=== PATIENT | female | born 1935 | race Caucasian/White ===

== ENCOUNTER 2017-05-06 14:16 | Outpatient (CLI) | payer MEDICARE ==
--- NOTE | 2017-05-06 16:31 | MMO ---
BILATERAL MAMMOGRAMS: DATE: 05/06/17 HISTORY: Screening mammography. COMPARISON: 12/08/12 and 03/22/16. FINDINGS: Heterogeneously dense fibroglandular tissue and benign-appearing calcifications are again demonstrat ed. No dominant mass or suspicious calcifications. The study was evaluated with the assistance of computer-aided detection. IMPRESSION: BIRADS 1: Negative Suggest routine follow-up. POS: KENNETH
== END 2017-05-06 14:17 | disposition home or self-care (01) ==
LOC: SCSMAMMO 14:16
PROVIDERS: ATTEND Family Medicine
DX: Z12.31 Encounter for screening mammogram for malignant neoplasm of breast (principal)
CPT/HCPCS: 77067; G0202

== ENCOUNTER 2018-06-09 10:43 | Outpatient (CLI) | payer MEDICARE | END 2018-06-09 10:44 | disposition home or self-care (01) | LOC: BICMAMMO 10:43 | PROVIDERS: ATTEND Family Medicine | DX: Z12.31 Encounter for screening mammogram for malignant neoplasm of breast (principal) | CPT/HCPCS: 77063; 77067 ==

== ENCOUNTER 2019-03-11 05:52 | Day surgery (SDC) | payer MEDICARE ==
[2019-03-10 14:17] VITALS: BMI 28.2
[2019-03-11] MEDS ORDERED: EPINEPHrine 0.3 MG in Ophthalmic Irrigation Solution 500 ML IVP SCH (06:00)
[2019-03-11] MEDS ORDERED: Phenylephrine 2.5% Ophth Soln 5 ML BOT ONE (06:05)
[2019-03-11] MEDS ORDERED: Cyclopentolate 1% Opth Drop 2 ML BOT ONE (06:05)
--- NOTE | 2019-03-11 11:29 | OP ---
DATE OF PROCEDURE: 03/11/2019 PRINCIPAL PREOPERATIVE DIAGNOSIS: Vitreomacular traction syndrome, left eye. POSTOPERATIVE DIAGNOSIS: Vitreomacular traction syndrome, left eye. PROCEDURES PERFORMED: 1. 25-gauge pars plana vitrectomy, left eye. 2. Membrane peel, left eye. ESTIMATED BLOOD LOSS: None. SPECIMENS REMOVED: None. COMPLICATIONS: None. ANESTHESIA: LMA. DESCRIPTION OF PROCEDURE: The patient was identified in the preoperative holding area, where the correct eye being the left eye was marked for surgery. The patient was taken to the operating room, where general anesthesia was induced. The left eye was prepped and draped in the usual sterile ophthalmic fashion for surgery. A wire lid speculum was placed. A standard 25-gauge pars plana vitrectomy platform was fashioned with trocars placed approximately 3.5 mm from the limbus. The infusion was noted to be within the vitreous cavity prior to being turned out to infusion pressure of 30 mmHg. A light pipe Micro vitrector was introduced in the eye under visualization of the viewing system. A careful core vitrectomy was performed followed by injection of Kenalog. A gentle posterior vitreous detachment was created followed by completion of peripheral shave vitrectomy. Great care was taken to minimize traction placed on the fovea. Following completion of peripheral shave vitrectomy, a 360-degree exam of periphery was performed, which revealed no defects. The cannulas were sequentially removed with suturing of the supranasal and infratemporal sclerotomies with 7-0 Vicryl suture. Following suturing, all sclerotomies were noted to be watertight. Subconjunctival dexamethasone and Ancef were injected. The wire lid speculum was removed followed by application of Tobradex and application of light patch and shield. The patient tolerated the procedure well and was taken to the outpatient recovery area in good condition. Job ID: [id number]
== END 2019-03-11 09:20 | disposition home or self-care (01) ==
LOC: SDC 05:52
PROVIDERS: ATTEND Ophthalmology Retina Specialist
PROC: 08T53ZZ Resection of Left Vitreous, Percutaneous Approach (ICD-10-PCS; principal; 2019-03-11)
PROC: 08NF3ZZ Release Left Retina, Percutaneous Approach (ICD-10-PCS; 2019-03-11)
DX: H43.822 Vitreomacular adhesion, left eye (principal); Z79.1 Long term (current) use of non-steroidal anti-inflammatories (NSAID); Z79.82 Long term (current) use of aspirin; Z79.899 Other long term (current) drug therapy; Z88.0 Allergy status to penicillin; Z91.041 Radiographic dye allergy status; Z98.41 Cataract extraction status, right eye
CPT/HCPCS: J0171

== ENCOUNTER 2019-07-14 14:57 | Outpatient (CLI) | payer MEDICARE ==
--- NOTE | 2019-07-14 12:02 | MMO ---
Bilateral MAMMO Bilat Screen DDI+PURA. CLINICAL HISTORY: Patient is 84 years old and is seen for screening. The patient has no family history of breast cancer. The patient has no personal history of cancer. VIEWS: The views performed were: bilateral craniocaudal with tomosynthesis and bilateral mediolateral oblique with tomosynthesis. FILMS COMPARED: The present examination has been compared to prior imaging studies performed at [facility] on 03/06/2015, 03/22/2016, 05/07/2017 and 06/09/2018. This study has been interpreted with the assistance of computer-aided detection. MAMMOGRAM FINDINGS: There are scattered fibroglandular densities. There are stable benign appearing calcifications seen in the right breast. There are no suspicious masses, calcifications or areas of architectural distortion. There are no suspicious masses, suspicious calcifications, or new areas of architectural distortion. IMPRESSION: THERE IS NO MAMMOGRAPHIC EVIDENCE OF MALIGNANCY. A ROUTINE FOLLOW-UP MAMMOGRAM IN 1 YEAR IS RECOMMENDED. THE RESULTS OF THIS EXAM WERE SENT TO THE PATIENT. ACR BI-RADS Category 2 - Benign finding MAMMOGRAPHY NOTE: 1. A negative mammogram report should not delay a biopsy if a dominant of clinically suspicious mass is present. 2. Approximately 10% to 15% of breast cancers are not detected by mammography. 3. Adenosis and dense breasts may obscure an underlying neoplasm. Reported by: SADIE REED MD Electonically Signed: [id number]
== END 2019-07-14 14:58 | disposition home or self-care (01) ==
LOC: BICMAMMO 14:57
PROVIDERS: ATTEND Family Medicine
DX: Z12.31 Encounter for screening mammogram for malignant neoplasm of breast (principal)
CPT/HCPCS: 77063; 77067

== ENCOUNTER 2020-07-13 15:27 | Inpatient (IN) | payer MEDICARE ==
[2020-07-13 17:03] LABS: Bacteria/HPF None Seen HPF (None Seen); Bilirubin Negative (Negative); Blood, Urine Trace (Negative); Clarity Clear (Clear); Glucose, Urine (Dipstick) Normal (Negative); Ketone, Urine Negative (Negative); Leukocyte Negative Leu/uL (Negative); Nitrite Negative (Negative); Protein, Urine (Dipstick) Negative (Neg-Trace); RBC/HPF 0-3 HPF (0-3); Specific Gravity, Urine 1.005 (1.002-1.036); Squamous Epithelial None Seen HPF (0-3); Urobilinogen Normal mg/dL (Less than 2); WBC/HPF 0-3 HPF (0-3)
[2020-07-13 17:19] LABS: #Eosinphils 0.1 thou/uL (0.0-0.7); #Lymphocytes 2.3 thou/uL (1.20-3.40); #Monocytes 0.6 thou/uL (0.11-0.59); #Neutrophils 4.3 thou/uL (1.40-6.50); %Basophils 0.6 % (0.0-1.0); %Lymphocytes 31.1 % (21.0-51.0); %Monocytes 7.6 % (0.0-10.0); %Neutrophils 58.7 % (42.0-75.0); Hemoglobin 11.4 g/dL (12.0-16.0); Mean Corpuscular HGB CONC 32.7 g/dL (32.0-36.0); Mean Corpuscular Hemoglobin 32.5 pg (27.0-31.0); Mean Corpuscular Volume 99.7 fL (78.0-98.0); Mean Platelet Volume 7.8 fL (7.4-10.4); Platelet Count 223 thou/uL (130-400); RBC Distribution Width 11.6 % (11.5-14.5); Red Blood Cell (RBC) Count 3.51 mill/uL (4.20-5.40); White Blood Cell (WBC) Count 7.3 thou/uL (4.8-10.8)
[2020-07-13 17:27] LABS: ALT (SGPT) 13 U/L (8-55); AST (SGOT) 21 U/L (5-34); Albumin 4.1 g/dL (3.4-4.8); Alkaline Phosphatase 57 U/L (40-110); Anion Gap 16 mmol/L (10-20); BUN (Urea Nitrogen) 12 mg/dL (9.8-20.1); Bilirubin, Total 0.3 mg/dL (0.2-1.2); Calc. Creatinine Clearance 0 mL/min (70-130); Calcium 9.3 mg/dL (7.8-10.44); Carbon Dioxide 23 mmol/L (23-31); Chloride 107 mmol/L (98-107); Globulin 3.1 g/dL (2.4-3.5); Glucose 99 mg/dL (83-110); Potassium 4.3 mmol/L (3.5-5.1); Protein, Total 7.2 g/dL (6.0-8.3); Sodium 142 mmol/L (136-145)
--- NOTE | 2020-07-13 18:28 | RAD ---
TWO VIEWS OF THE RIGHT HUMERUS: 07/13/20 COMPARISON: None. HISTORY: Left shoulder pain after fall. FINDINGS: two views of the right humerus shows no evidence of acute fracture or dislocation. No significant deg enerative changes are seen in the shoulder or elbow. The visualized right thorax is unremarkable. Mi ld soft tissue swelling of the upper arm is seen. IMPRESSION: No evidence of acute osseous abnormality. POS: EAA
--- NOTE | 2020-07-13 19:06 | PDOC.HHP ---
Hospitalist HPI - History of Present Illness Fall History of Present Illness: PCP: Dr. Arceo The H&P was taken from the patient and her daughter at bedside. The patient is an 85-year-old female with a past medical history significant for vertigo, hyperlipidemia and urinary incontinence that presents to the emergency department as a transfer from [facility] via EMS to rule out posterior stroke. The patient reports that she fell because "I lost my balance" this morning while ambulating in her home. She reports that she tried to grab the handle of the oven in order to steady herself, but could not, so she fell to the floor. She reports that she usually ambulates with a cane, however, did not do so at that time. She says that she fell backwards onto her bottom and back, and says that she may have hit her head. The patient called her neighbor who in turn called 911. She denies any headache or neck pain. She does endorse left shoulder pain. She denies LOC, dizziness/vertigo prior to the fall. Denies any recent illness or fever. No recent changes to her medications. She denies any chest pain, heart palpitations or lightheadedness prior to the fall. She denies any abdominal pain, vomiting, or melena/hematochezia. The patient was taken to [facility]. [facility], the patient CT brain negative for any acute process. Did have a vague low-density area in the left parieto-occipital lobe could be volume averaging versus CVA. CT of the neck showed no acute fracture, did show degenerative changes. The patient's blood work was unremarkable. She was given an aspirin and transferred to our hospital for further evaluation to rule out posterior stroke . ED Course: VITAL SIGNS Judith Jul 13, 2020 15:31 SAPPHIRE [place] BP: 170/97, Pulse: 93, Resp: 22, Temp: 99.3 (Oral), Pain: 3, O2 sat: 97 on (Room Air), Time: 07/13/2020 15:31. VITAL SIGNS Judith Jul 13, 2020 16:50 SAPPHIRE [place] BP: 157/98, Pulse: 86, Resp: 20, Pain: 0, O2 sat: 99 on (Room Air), Time: 07/13/2020 16:50. VITAL SIGNS Judith Jul 13, 2020 17:50 SAPPHIRE [place] BP: 157/98, Pulse: 93, Resp: 20, Pain: 0, O2 sat: 97 on (Room Air), Time: 07/13 17:50. VITAL SIGNS Judith Jul 13, 2020 18:12 SAPPHIRE [place] BP: 157/98, Pulse: 93, Resp: 19, Pain: 0, O2 sat: 97 on (Room Air), Time: 07/13/2020 18:12. Allergies: Iodinated contrast Hospitalist ROS - Review of Systems All other systems reviewed; all pertinent +/- noted in HPI/Subj - Medication Medications: 1. Simvastatin 40 mg p.o. daily 2. Meclizine 25 mg p.o. daily. 3. Aspirin 81 mg p.o. nightly. 4. Nmpyiaqe44 mg p.o. daily 5. Omeprazole 20 mg p.o. daily 6. Loratadine 10 mg p.o. daily 7. Meloxicam 7.5 mg p.o. nightly. 8. Seroquel 25 mg p.o. 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: Vertigo (Takes meclizine daily), Other (Bilateral hand tremor, takes Seroquel daily) Gastrointestinal: reports: GERD Musculoskeletal: reports: Osteoarthritis ENT: reports: Other (Seasonal allergies) Renal/: reports: Other (Urinary incontinence) - Past Surgical History Past Surgical History: reports: no pertinent history - Family History Family History: denies: cerebrovascular accident - Social History Smoking Status: Never smoker Alcohol: reports: None Drugs: reports: none Living Situation: Alone Occupation: Retired Activity level: uses cane/walker - Exam General Appearance: NAD, awake alert. negative: ill appearing Eye: PERRL, anicteric sclera ENT: normocephalic atraumatic Neck: supple, symmetric Heart: RRR, no murmur, no gallops, no rubs, normal peripheral pulses Respiratory: CTAB, no wheezes, no rales, no ronchi, normal chest expansion, no tachypnea Gastrointestinal: soft, non-tender, non-distended, normal bowel sounds, no guarding, no rigidity Gastrointestinal - other findings: No rebound Extremities: no cyanosis, no edema Skin: no rashes Neurological: cranial nerve grossly intact, no focal deficits Musculoskeletal: normal tone, normal strength Psychiatric: normal affect, A&O x 3 Psychiatric - other findings: [facility] Hospitalist Results - Labs Result Diagrams: 07/13/20 16:57 07/13/20 16:57 Lab results: WBC 7.3 thou/uL (4.8-10.8) 07/13/20 16:57 Hgb 11.4 g/dL (12.0-16.0) L 07/13/20 16:57 Hct 34.9 % (36.0-47.0) L 07/13/20 16:57 MCV 99.7 fL (78.0-98.0) H 07/13/20 16:57 Plt Count 223 thou/uL (130-400) 07/13/20 16:57 Neutrophils % 58.7 % (42.0-75.0) 07/13/20 16:57 Sodium 142 mmol/L (136-145) 07/13/20 16:57 Potassium 4.3 mmol/L (3.5-5.1) 07/13/20 16:57 Chloride 107 mmol/L (98-107) 07/13/20 16:57 Carbon Dioxide 23 mmol/L (23-31) 07/13/20 16:57 BUN 12 mg/dL (9.8-20.1) 07/13/20 16:57 Creatinine 1.16 mg/dL (0.6-1.1) H 07/13/20 16:57 Glucose 99 mg/dL (83-110) 07/13/20 16:57 Calcium 9.3 mg/dL (7.8-10.44) 07/13/20 16:57 Total Bilirubin 0.3 mg/dL (0.2-1.2) 07/13/20 16:57 AST 21 U/L (5-34) 07/13/20 16:57 ALT 13 U/L (8-55) 07/13/20 16:57 Alkaline Phosphatase 57 U/L (40-110) 07/13/20 16:57 Troponin I 0.020 ng/mL (< 0.028) 07/13/20 16:57 Serum Total Protein 7.2 g/dL (6.0-8.3) 07/13/20 16:57 Albumin 4.1 g/dL (3.4-4.8) 07/13/20 16:57 Urine Ketones Negative mg/dL (Negative) 07/13/20 16:39 Urine Blood Trace (Negative) A 07/13/20 16:39 Urine Nitrite Negative (Negative) 07/13/20 16:39 Ur Leukocyte Esterase Negative Demarcus/uL (Negative) 07/13/20 16:39 Urine RBC 0-3 HPF (0-3) 07/13/20 16:39 Urine WBC 0-3 HPF (0-3) 07/13/20 16:39 Ur Squamous Epith Cells None Seen HPF (0-3) 07/13/20 16:39 Urine Bacteria None Seen HPF (None Seen) 07/13/20 16:39 - Radiology Interpretation CT scan - head Status: report reviewed by me Additional Comment: Vague low-density area in the left parieto-occipital region, volume averaging versus stroke. No acute intracranial process. Other Status: report reviewed by me Additional Comment: CT neck Degenerative changes, no acute fracture. XR left humerus: No acute fracture dislocation. Chest x-ray Status: report reviewed by me Additional Comment: No acute process. Hospitalist H&P A/P - Problem (1) TIA (transient ischemic attack) Code(s): G45.9 - TRANSIENT CEREBRAL ISCHEMIC ATTACK, UNSPECIFIED Status: Acute (2) Fall Code(s): W19.XXXA - UNSPECIFIED FALL, INITIAL ENCOUNTER Status: Acute (3) Tremor of both hands Code(s): R25.1 - TREMOR, UNSPECIFIED Status: Chronic (4) Urinary retention Code(s): R33.9 - RETENTION OF URINE, UNSPECIFIED Status: Acute (5) Urinary incontinence Code(s): R32 - UNSPECIFIED URINARY INCONTINENCE Status: Chronic (6) GERD (gastroesophageal reflux disease) Code(s): K21.9 - GASTRO-ESOPHAGEAL REFLUX DISEASE WITHOUT ESOPHAGITIS Status: Chronic (7) HLD (hyperlipidemia) Code(s): E78.5 - HYPERLIPIDEMIA, UNSPECIFIED Status: Chronic (8) Osteoarthritis Code(s): M19.90 - UNSPECIFIED OSTEOARTHRITIS, UNSPECIFIED SITE Status: Chronic - Plan Plan: 85/F with PMH vertigo, HLD presents for fall, R/O posterior CVA. Admit to stroke unit, observation status. Expected length of stay less than 2 midnights. Presented hypertensive, tachycardic, NL RR, SPO2, afebrile. CT vague low-density area in left parieto-occipital region. CT neck degenerative changes. CXR no acute process. Blood work unremarkable. UA unremarkable. #TIA Order MRI, CD US, echocardiogram. Consult neurology and stroke team. Continue aspirin, start statin. Check TSH, FLP, mag, folate/B12. Orthostatic VS Permissive hypertension. Neurochecks. #Fall Likely mechanical fall. Per ER MD, concern for posterior stroke. Work-up as stated in problem #1. #Tremor of both hands chronic. takes seroquel at home. Restart home dose seroquel. #Urinary retention Presented with distended abdomen. Bladder scan approximately 2L UOP s/p urinary catheter. Takes Vesicare at home. Reports compliance of medications. We will hold Vesicare for now. UA clear. Urine culture pending. #Urinary incontinence Takes Vesicare at home. We will hold home dose Vesicare for now. #GERD Takes omeprazole at home. Restart home medication. #HLD Takes simvastatin at home. We will restart home medication. Check FLP. #Osteoarthritis Takes meloxicam at home. We will restart home dose of meloxicam. SCDs for DVT prophylaxis. Omeprazole GI prophylaxis. Full code Discussed case with Dr. Lunsford.
[2020-07-13] MEDS ORDERED: Labetalol HCl 100 MG/20 ML VIAL SLOW IVP PRN (20:24)
[2020-07-13] MEDS ORDERED: hydrALAZINE 20 MG/ML VIAL SLOW IVP PRN (20:24)
[2020-07-13] MEDS ORDERED: Calcium Carbonate 500 MG ChewTAB PO PRN (20:27)
[2020-07-13] MEDS ORDERED: Ondansetron PF 4 MG/2 ML Vial IVP PRN (20:27)
[2020-07-13] MEDS ORDERED: Senokot S 8.6-50 MG TAB PO PRN (20:27)
[2020-07-13] MEDS ORDERED: Ondansetron ODT 4 MG TAB PO PRN (20:27)
[2020-07-13] MEDS ORDERED: Acetaminophen 325 MG TAB PO PRN (20:27)
[2020-07-13 21:30] LABS: Troponin I 0.017 ng/mL (< 0.028)
[2020-07-13 22:34] VITALS: BMI 28.6
[2020-07-13] MEDS: Atorvastatin Calcium 40 MG TAB PO SCH (23:24)
[2020-07-13] MEDS: Meloxicam 7.5 MG TAB PO SCH (23:25)
[2020-07-13 23:45] LABS: Troponin I Less than 0.010 ng/mL (< 0.028)
[2020-07-14 05:36] LABS: #Basophils 0.1 thou/uL (0.0-0.2); #Eosinphils 0.3 thou/uL (0.0-0.7); #Lymphocytes 2.5 thou/uL (1.20-3.40); #Monocytes 0.6 thou/uL (0.11-0.59); %Basophils 1.1 % (0.0-1.0); %Eosinophils 4.6 % (0.0-10.0); %Lymphocytes 38.7 % (21.0-51.0); %Monocytes 9.3 % (0.0-10.0); %Neutrophils 46.3 % (42.0-75.0); Hemoglobin 11.1 g/dL (12.0-16.0); Mean Corpuscular HGB CONC 32.9 g/dL (32.0-36.0); Mean Corpuscular Hemoglobin 32.1 pg (27.0-31.0); Mean Corpuscular Volume 97.7 fL (78.0-98.0); Mean Platelet Volume 7.8 fL (7.4-10.4); Platelet Count 221 thou/uL (130-400); RBC Distribution Width 11.6 % (11.5-14.5); Red Blood Cell (RBC) Count 3.46 mill/uL (4.20-5.40); White Blood Cell (WBC) Count 6.5 thou/uL (4.8-10.8)
[2020-07-14 05:59] LABS: Anion Gap 12 mmol/L (10-20); BUN (Urea Nitrogen) 11 mg/dL (9.8-20.1); Calc. Creatinine Clearance 46 mL/min (70-130); Calcium 9.1 mg/dL (7.8-10.44); Carbon Dioxide 28 mmol/L (23-31); Cardiac Risk 2.6 (Less than 4.5); Chloride 104 mmol/L (98-107); Cholesterol 144 mg/dl (< 200 Desired); Glucose 80 mg/dL (83-110); HDL Cholesterol 55 mg/dL (>60 Neg Risk); LDL Cholesterol, Calculated 71 mg/dL; Magnesium 1.6 mg/dL (1.6-2.6); Potassium 3.8 mmol/L (3.5-5.1); Sodium 140 mmol/L (136-145); Triglycerides 92 mg/dL (Less than 150)
[2020-07-14 06:22] LABS: SARS-CoV-2 MS2 Positive; SARS-CoV-2 N Gene Negative; SARS-CoV-2 S Gene Negative; SARS-CoV-2 by NAA Not Detected (NotDetected); SARS-CoV-2 orf1ab Negative
[2020-07-14 06:23] LABS: Thyroid Stimulating Hormone 3.1907 uIU/mL (0.35-4.94)
--- NOTE | 2020-07-14 06:47 | ULT ---
CAROTID ULTRASOUND: DATE: 07/13/2020 COMPARISON: None. HISTORY: Loss of balance and fell and hit head. TECHNIQUE: Multiplanar Mcclendon scale and color Doppler images were obtained in a carotid ultrasound. Spectral ashley sis of the Doppler waveforms were performed. FINDINGS: A minimal amount of plaque is seen surrounding both carotid bifurcations. The Doppler waveforms are n ormal bilaterally. Peak systolic velocity in the right ICA is 95 cm/second. Peak systolic velocity in the right CCA is 8 5 cm/second. The right ICA/CCA ratio is 1.1. Peak systolic velocity in the left ICA is 99 cm/second. Peak systolic velocity in the left CCA is 101 cm/second. The left ICA/CCA ratio is 1.0. Both vertebral arteries demonstrate antegrade flow without focal stenosis. IMPRESSION: No evidence of hemodynamically significant stenosis. POS: EAA
[2020-07-14] MEDS ORDERED: FLU VACC QS2020-21(65YR UP)/PF 240 MCG/0.7 ML SYRINGE IM ONE (09:00)
[2020-07-14] MEDS: Aspirin 325 mg Enteric Coated Tablet PO SCH (10:13)
[2020-07-14] MEDS: Loratadine 10 MG TAB PO SCH (10:17)
[2020-07-14] MEDS: Meclizine HCl 12.5 MG TAB PO SCH (10:17)
--- NOTE | 2020-07-14 10:23 | MRI ---
MRI BRAIN WITHOUT CONTRAST: Date: 07/14/2020 INDICATION: Weakness. Question stroke. Correlation made to CT scan yesterday which questioned possible infarct in the left temporoparietal r egion. FINDINGS: Moderate cortical atrophy. Moderate chronic ischemic white matter change. Ventricles have normal size and position. There is no evidence of mass or edema. There is no evidence of restricted diffusion, a nd therefore no evidence of acute or subacute infarct. Findings on yesterday's CT scan would be the r esult of volume averaging. The intracranial internal carotid arteries and proximal cerebral arteries demonstrate flow-voids. Bas ilar artery is patent. IMPRESSION: 1. Mild cortical atrophy and moderate chronic ischemic white matter change. 2. No acute process. POS: AGW
--- NOTE | 2020-07-14 13:48 | CON ---
NEUROLOGY CONSULTATION DATE OF CONSULTATION: 07/14/2020 REASON FOR CONSULTATION: Stroke. HISTORY OF PRESENT ILLNESS: Ms. Cutler is an 85-year-old female with medical history significant for vertigo, hyperlipidemia, bilateral hand tremor, osteoarthritis, seasonal allergy, and urinary incontinence, presented to the emergency room after a fall. She was referred as a transfer from [facility] via EMS to rule out posterior circulation stroke. Per the patient, she fell because she lost her balance while ambulating at home. Yesterday, she tried to grab the handle, wanting her to steady herself, but could not, and fell to the floor. Per patient, she usually ambulates with a cane, but she was not able to do that at that time. The patient denies any focal weakness, focal paresthesias, nausea, vomiting, headache, chest pain, abdominal pain, dizziness, vertigo or double vision, loss of vision or loss of consciousness, recent illness, chest pain, or recent exposure to COVID. In the [place] ED, head CT was done, which was negative for acute intracranial pathology, but did show a vague low-density area in the left parieto-occipital lobe, so there is a concern about stroke, so she was transferred to the [facility] for [facility] evaluation. CT of the neck did not reveal any acute fracture, but did show degenerative changes. She was given aspirin and transferred for further evaluation for stroke. REVIEW OF SYSTEMS: All systems reviewed and were negative except the pertinent positives and negatives mentioned in the HPI. ALLERGIES: IODINATED CONTRAST. HOME MEDICATIONS: 1. Simvastatin 40 mg p.o. daily. 2. Meclizine 25 mg p.o. daily. 3. Aspirin 81 mg p.o. daily. 4. VESIcare 10 mg p.o. daily. 5. Omeprazole 20 mg p.o. daily. 6. Loratadine 10 mg p.o. daily. 7. Meloxicam 7.5 mg p.o. nightly. 8. Seroquel 25 mg p.o. daily. PAST MEDICAL HISTORY: Hyperlipidemia, vertigo, bilateral hand tremor, GERD, osteoarthritis, seasonal allergies, and urinary incontinence. PAST SURGICAL HISTORY: No significant past surgical history. FAMILY HISTORY: No family history of cerebrovascular accident. SOCIAL HISTORY: The patient is retired and lives alone. She uses a cane or a walker. Denies smoking, alcohol, or illegal drug use. PHYSICAL EXAMINATION: VITAL SIGNS: Blood pressure 170/97, respiratory rate 22, temperature 99. General Appearance: NAD, awake alert. negative: ill appearing Eye: PERRL, anicteric sclera ENT: normocephalic atraumatic Neck: supple, symmetric Heart: RRR, no murmur, no gallops, no rubs, normal peripheral pulses Respiratory: CTAB, no wheezes, no rales, no ronchi, normal chest expansion, no tachypnea Gastrointestinal: soft, non-tender, non-distended, normal bowel sounds, no guarding, no rigidity Gastrointestinal - other findings: No rebound Extremities: no cyanosis, no edema Skin: no rashes Neurological: Mental status, the patient is alert and oriented to person, place, and time. Recent and remote memory intact. Fund of knowledge is appropriate. Cranial nerves 2 through 12 intact. Cerebellar, finger-nose testing intact. Sensory intact. Motor; muscle tone and bulk are normal. Moving all 4 extremities equally and symmetrically. Gait deferred due to patient's safety reason. DATA REVIEWED: I reviewed the labs which were significant for anemia with hemoglobin of 11.4, hematocrit of 34.9 and creatinine of 1.16. WBC 7.3 thou/uL (4.8-10.8) 07/13/20 16:57 Hgb 11.4 g/dL (12.0-16.0) L 07/13/20 16:57 Hct 34.9 % (36.0-47.0) L 07/13/20 16:57 MCV 99.7 fL (78.0-98.0) H 07/13/20 16:57 Plt Count 223 thou/uL (130-400) 07/13/20 16:57 Neutrophils % 58.7 % (42.0-75.0) 07/13/20 16:57 Sodium 142 mmol/L (136-145) 07/13/20 16:57 Potassium 4.3 mmol/L (3.5-5.1) 07/13/20 16:57 Chloride 107 mmol/L (98-107) 07/13/20 16:57 Carbon Dioxide 23 mmol/L (23-31) 07/13/20 16:57 BUN 12 mg/dL (9.8-20.1) 07/13/20 16:57 Creatinine 1.16 mg/dL (0.6-1.1) H 07/13/20 16:57 Glucose 99 mg/dL (83-110) 07/13/20 16:57 Calcium 9.3 mg/dL (7.8-10.44) 07/13/20 16:57 Total Bilirubin 0.3 mg/dL (0.2-1.2) 07/13/20 16:57 AST 21 U/L (5-34) 07/13/20 16:57 ALT 13 U/L (8-55) 07/13/20 16:57 Alkaline Phosphatase 57 U/L (40-110) 07/13/20 16:57 Troponin I 0.020 ng/mL (< 0.028) 07/13/20 16:57 Serum Total Protein 7.2 g/dL (6.0-8.3) 07/13/20 16:57 Albumin 4.1 g/dL (3.4-4.8) 07/13/20 16:57 Urine Ketones Negative mg/dL (Negative) 07/13/20 16:39 Urine Blood Trace (Negative) A 07/13/20 16:39 Urine Nitrite Negative (Negative) 07/13/20 16:39 Ur Leukocyte Esterase Negative Demarcus/uL (Negative) 07/13/20 16:39 Urine RBC 0-3 HPF (0-3) 07/13/20 16:39 Urine WBC 0-3 HPF (0-3) 07/13/20 16:39 Ur Squamous Epith Cells None Seen HPF (0-3) 07/13/20 16:39 Urine Bacteria None Seen HPF (None Seen) 07/13/20 16:39 - Radiology Interpretation CT scan - head Status: report reviewed by me Additional Comment: Vague low-density area in the left parieto-occipital region, volume averaging versus stroke. No acute intracranial process. Other Status: report reviewed by me Additional Comment: CT neck Degenerative changes, no acute fracture. XR left humerus: No acute fracture dislocation. Chest x-ray Status: report reviewed by me Additional Comment: No acute process. ASSESSMENT AND PLAN: (1) TIA (transient ischemic attack) Code(s): G45.9 - TRANSIENT CEREBRAL ISCHEMIC ATTACK, UNSPECIFIED Status: Acute (2) Fall Code(s): W19.XXXA - UNSPECIFIED FALL, INITIAL ENCOUNTER Status: Acute (3) Tremor of both hands Code(s): R25.1 - TREMOR, UNSPECIFIED Status: Chronic (4) Urinary retention Code(s): R33.9 - RETENTION OF URINE, UNSPECIFIED Status: Acute (5) Urinary incontinence Code(s): R32 - UNSPECIFIED URINARY INCONTINENCE Status: Chronic (6) GERD (gastroesophageal reflux disease) Code(s): K21.9 - GASTRO-ESOPHAGEAL REFLUX DISEASE WITHOUT ESOPHAGITIS Status: Chronic (7) HLD (hyperlipidemia) Code(s): E78.5 - HYPERLIPIDEMIA, UNSPECIFIED Status: Chronic (8) Osteoarthritis Code(s): M19.90 - UNSPECIFIED OSTEOARTHRITIS, UNSPECIFIED SITE Status: Chronic Ms. Cutler is an 85-year-old female who was admitted for possible stroke. MRI of the brain reviewed, which was negative for possible transient ischemic attack. MRI of the brain reviewed, which was negative for acute intracranial pathology. Carotid Dopplers did not reveal hemodynamically significant stenosis. Continue aspirin and statin for secondary stroke prevention. Neuro checks every 4 hours. Strict control of blood pressure and blood glucose. Continue home medications. 2D echo is pending. Telemetry to rule out arrhythmias. Continue medical management per primary team. PT/OT/Speech. DVT prophylaxis. We will continue to follow. Thank you for the consult. Job ID: [id number] [facility] CENTERBrandon
--- NOTE | 2020-07-14 15:44 | PDOC.DS.DS ---
Provider - Provider Date of Admission: 07/13/20 19:46 Date of Discharge: 07/14/20 Admitting Provider: Gato Lunsford DO Primary Care Physician: Elian Arceo DO Course - Hospital Course Hospital Course: - History of Present Illness Fall History of Present Illness: PCP: Dr. Arceo "The H&P was taken from the patient and her daughter at bedside. The patient is an 85-year-old female with a past medical history significant for vertigo, hyperlipidemia and urinary incontinence that presents to the emergency department as a transfer from [facility] via EMS to rule out posterior stroke. The patient reports that she fell because "I lost my balance" this morning while ambulating in her home. She reports that she tried to grab the handle of the oven in order to steady herself, but could not, so she fell to the floor. She reports that she usually ambulates with a cane, however, did not do so at that time. She says that she fell backwards onto her bottom and back, and says that she may have hit her head. The patient called her neighbor who in turn called 911. She denies any headache or neck pain. She does endorse left shoulder pain. She denies LOC, dizziness/vertigo prior to the fall. Denies any recent i llness or fever. No recent changes to her medications. She denies any chest pain, heart palpitations or lightheadedness prior to the fall. She denies any abdominal pain, vomiting, or melena/hematochezia. The patient was taken to [facility]. [facility], the patient CT brain negative for any acute process. Did have a vague low-density area in the left parieto-occipital lobe could be volume a veraging versus CVA. CT of the neck showed no acute fracture, did show degenerative changes. The patient's blood work was unremarkable. She was given an aspirin and transferred to our hospital for further evaluation to rule out posterior stroke." This is an 85-year-old female with past medical history of hyper lipidemia and vertigo who was admitted to the hospital for evaluation of possible stroke new to presentation with dizziness. The patient's symptoms were resolved on the second day of hospital stay. Studies including MRI of the brain and carotid duplex studies did not show any acute abnormalities. The patient's symptoms are likely due to TIA versus benign vertigo. Resuscitation Status: 07/13/20 20:27 Resuscitation Status Routine Co-Sign Provider: Resuscitation Status: FULL: Full Resuscitation Discussed with: patient - Labs Lab Results: 07/14/20 04:59 07/14/20 04:59 Abnormal Lab Results - Last 48 hrs 07/13/20 16:39: Urine Blood Trace A 07/13/20 16:57: Creatinine 1.16 H 07/13/20 16:57: RBC 3.51 L, Hgb 11.4 L, Hct 34.9 L, MCV 99.7 H, MCH 32.5 H, Monocytes # 0.6 H 07/14/20 04:59: RBC 3.46 L, Hgb 11.1 L, Hct 33.9 L, MCH 32.1 H, Basophils % 1.1 H, Monocytes # 0.6 H Microbiology - Entire Visit 07/13/20 16:39 Urine graham catheter Urine Culture - Preliminary NO GROWTH AT 12 HOURS 07/13/20 16:57 Venous blood - Right Arm Blood Culture - Preliminary Specimen has been received and culture in progress. No Growth to date. 07/13/20 17:06 Venous blood - Right Hand Blood Culture - Preliminary Specimen has been received and culture in progress. No Growth to date. - Physical Exam Vitals: Vital Signs (12 hours) Temp Pulse Pulse Pulse Resp BP BP 07/14/20 15:33 98.6 F 73 20 07/14/20 11:35 98.8 F 90 20 07/14/20 09:11 96 99 168/78 H 178/82 H 07/14/20 07:25 98.5 F 78 16 07/14/20 04:00 97.8 F 80 16 BP BP BP BP Pulse Ox 07/14/20 15:33 139/71 96 07/14/20 11:35 164/77 H 96 07/14/20 09:11 07/14/20 07:25 152/68 H 158/74 H 161/72 H 96 07/14/20 04:00 185/83 H 96 Weight Weight 127 lb 12.8 oz Physical Exam: The patient was seen and examined on the day of discharge. Problem - Problem (1) Dizziness Code(s): R42 - DIZZINESS AND GIDDINESS Status: Acute (2) TIA (transient ischemic attack) Code(s): G45.9 - TRANSIENT CEREBRAL ISCHEMIC ATTACK, UNSPECIFIED Status: Acute (3) GERD (gastroesophageal reflux disease) Code(s): K21.9 - GASTRO-ESOPHAGEAL REFLUX DISEASE WITHOUT ESOPHAGITIS Status: Chronic (4) HLD (hyperlipidemia) Code(s): E78.5 - HYPERLIPIDEMIA, UNSPECIFIED Status: Chronic (5) Osteoarthritis Code(s): M19.90 - UNSPECIFIED OSTEOARTHRITIS, UNSPECIFIED SITE Status: Chronic - Time spent with Patient (mins): 31 Plan - Discharge Medications Home Medications: Medication Instructions Recorded Confirmed Type Aspirin [Ecotrin Low Strength] 81 mg PO HS 03/10/19 07/14/20 History Loratadine [Allerclear] 10 mg PO DAILY 03/10/19 07/14/20 History Meclizine HCl 25 mg PO DAILY 03/10/19 07/14/20 History Meloxicam [Mobic] 7.5 mg PO BID 03/10/19 07/14/20 History Omeprazole 20 mg PO DAILY 03/10/19 07/14/20 History Simvastatin [Zocor] 40 mg PO DAILY 03/10/19 07/14/20 History Solifenacin Succinate [VESIcare] 10 mg PO DAILY 03/10/19 07/14/20 History QUEtiapine Fumarate [SEROquel] 25 mg PO DAILY 07/14/20 07/14/20 History Allergies: acetaminophen [From Lorcet (hydrocodone)] Allergy (Verified 07/13/20 23:01) acyclovir Allergy (Verified 07/13/20 23:01) Cephalosporins Allergy (Verified 07/13/20 23:01) ciprofloxacin Allergy (Verified 07/13/20 23:01) clindamycin Allergy (Verified 07/13/20 23:01) erythromycin base Allergy (Verified 07/13/20 23:01) flurazepam Allergy (Verified 07/13/20 23:01) hydrocodone [From Lorcet (hydrocodone)] Allergy (Verified 07/13/20 23:01) hydroxyzine Allergy (Verified 07/13/20 23:01) Iodinated Contrast Media Allergy (Verified 03/10/19 14:16) midazolam Allergy (Verified 07/13/20 23:01) nitrofurantoin Allergy (Verified 07/13/20 23:01) Penicillins Allergy (Verified 07/13/20 23:01) propoxyphene Allergy (Verified 07/13/20 23:01) Quinolones Allergy (Verified 07/13/20 23:01) ranitidine Allergy (Verified 07/13/20 23:01) Sulfa (Sulfonamide Antibiotics) Allergy (Verified 07/13/20 23:01) - Follow up Plan Referrals: Elian Arceo, [Primary Care Provider] - Disposition: HOME Quality - Care Measures CORE MEASURES:: Stroke/TIA - Stroke/TIA Did you prescribe antithrombotic therapy?: Yes Did you prescribe anticoagulant for A Fib/Flutter?: No Specify reason for no DC anticoagulant: Treatment not indicated (No AFIB) Did you prescribe a statin medication?: Yes
[2020-07-14] MEDS: Atorvastatin Calcium 40 MG TAB PO SCH (20:30)
[2020-07-14] MEDS: Meloxicam 7.5 MG TAB PO SCH (20:30)
[2020-07-15] MEDS: Aspirin 325 mg Enteric Coated Tablet PO SCH (09:18)
[2020-07-15] MEDS: Loratadine 10 MG TAB PO SCH (09:23)
[2020-07-15] MEDS: Meclizine HCl 12.5 MG TAB PO SCH (09:23)
--- NOTE | 2020-07-15 10:00 | PDOC.HOSPP ---
- Subjective Subjective: Follow up TIA/Urinary retention: no acute event. voided this morning. no further problem - Objective Vital Signs & Weight: Vital Signs (12 hours) Temp Pulse Resp BP BP Pulse Ox 07/15/20 08:00 98.2 F 77 14 182/77 H 96 07/15/20 04:00 98.2 F 74 14 151/77 H 97 07/15/20 00:00 98.8 F 78 15 198/92 H 96 Weight Weight 127 lb 12.8 oz I&O: 07/14/20 07/15/20 07/16/20 06:59 06:59 06:59 Intake Total 360 360 250 Output Total 700 650 Balance -340 -290 250 Result Diagrams: 07/14/20 04:59 07/14/20 04:59 Hospitalist ROS - Medication Medications: Active Medications Generic Name Dose Route Start Last Admin Trade Name Freq PRN Reason Stop Dose Admin Aspirin 325 mg 07/14/20 09:00 07/15/20 09:18 Aspirin 325 Mg Enteric Coated Tablet PO 325 mg DAILY PRUDENCIO Administration Atorvastatin Calcium 40 mg 07/13/20 21:00 07/14/20 20:30 Atorvastatin Calcium 40 Mg Tab PO 40 mg HS PRDUENCIO Administration Loratadine 10 mg 07/14/20 09:00 07/15/20 09:23 Loratadine 10 Mg Tab PO Not Given DAILY PRUDENCIO Meclizine HCl 12.5 mg 07/14/20 09:00 07/15/20 09:23 Meclizine Hcl 12.5 Mg Tab PO Not Given DAILY PRUDENCIO Meloxicam 7.5 mg 07/13/20 21:00 07/14/20 20:30 Meloxicam 7.5 Mg Tab PO 7.5 mg HS PRUDENCIO Administration Pantoprazole Sodium 40 mg 07/14/20 09:00 07/15/20 09:18 Pantoprazole 40 Mg Tab PO 40 mg DAILY PRUDENCIO Administration - Exam General Appearance: NAD Eye: PERRL ENT: normocephalic atraumatic Neck: supple Heart: RRR Respiratory: CTAB, no wheezes Gastrointestinal: soft, non-tender Extremities: no cyanosis, no clubbing, no edema Neurological: cranial nerve grossly intact Musculoskeletal: normal tone Psychiatric: normal affect, normal behavior, A&O x 3 Hosp A/P (1) TIA (transient ischemic attack) Code(s): G45.9 - TRANSIENT CEREBRAL ISCHEMIC ATTACK, UNSPECIFIED Status: Acute (2) Dizziness Code(s): R42 - DIZZINESS AND GIDDINESS Status: Acute (3) Fall Code(s): W19.XXXA - UNSPECIFIED FALL, INITIAL ENCOUNTER Status: Acute (4) Urinary retention Code(s): R33.9 - RETENTION OF URINE, UNSPECIFIED Status: Acute (5) GERD (gastroesophageal reflux disease) Code(s): K21.9 - GASTRO-ESOPHAGEAL REFLUX DISEASE WITHOUT ESOPHAGITIS Status: Chronic (6) HLD (hyperlipidemia) Code(s): E78.5 - HYPERLIPIDEMIA, UNSPECIFIED Status: Chronic (7) Osteoarthritis Code(s): M19.90 - UNSPECIFIED OSTEOARTHRITIS, UNSPECIFIED SITE Status: Chronic - Plan The patient is a 85 years old female who has significant past medical history of dyslipidemia, and vertigo, who presented to the ED with recurrent fall. Patient was admitted for further stroke work-up. Her MRI was negative, carotid duplex study was negative for stenosis. She was diagnosed with probable TIA versus benign vertigo. Patient was supposed to be discharged on 07/14/2020. However, patient developed urinary retention. For that reason, her discharge was canceled. Overnight, she required in and out cath. She was able to void spontaneously this morning. Her symptoms now resolved. At this time, patient stable to discharge home with home health. Please refer to previous discharge summary for detailed hospital course.
[2020-07-15 12:39] VITALS: BP 183/77; TEMP 99.1
== END 2020-07-15 14:09 | disposition home or self-care (01) | DRG 69 ==
LOC: ERS 15:27 → 2SE 19:46 → OBSVTOIN 07-14 16:46
PROVIDERS: ADMIT Family Medicine; ATTEND Family Medicine
DX: G45.9 Transient cerebral ischemic attack, unspecified (principal); Z23 Encounter for immunization; Z20.828 Contact with and (suspected) exposure to other viral communicable diseases; H81.10 Benign paroxysmal vertigo, unspecified ear; R33.9 Retention of urine, unspecified; K21.9 Gastro-esophageal reflux disease without esophagitis; E78.5 Hyperlipidemia, unspecified; M19.90 Unspecified osteoarthritis, unspecified site; R29.6 Repeated falls; R25.1 Tremor, unspecified; J30.2 Other seasonal allergic rhinitis; R32 Unspecified urinary incontinence; Z91.041 Radiographic dye allergy status; Z79.82 Long term (current) use of aspirin; Z79.899 Other long term (current) drug therapy; Z79.1 Long term (current) use of non-steroidal anti-inflammatories (NSAID)
CPT/HCPCS: 36415; 51702; 70551; 80048; 80061; 81003; 81015; 82607; 82746; 83735; 84443; 85025; 87040; 87086; 87635; 90471; 90662; 93306; 93880; G0008; G0378; U0003